=== PATIENT | female | born 1945 ===

== ENCOUNTER 2025-02-08 06:00 | Inpatient (IN) | payer OTHER ==
[2025-02-02 09:07] VITALS: BP 150/83
[2025-02-02 09:16] LABS: BASO % 0.3 % (0.1-1.2); EOS # 0.04 (0.04-0.54); EOS % 0.7 % (0.7-7.0); LYMPH # 1.44 (1.18-3.74); LYMPH % 24.1 % (19.3-53.1); MEAN PLATELET VOLUME 10.30 fl (9.4-12.4); MONO # 0.50 (0.24-0.82); MONO % 8.4 % (4.7-12.5); NEUT # 3.95 (1.56-6.13); NEUT % 66.2 % (34.0-71.1); RED CELL DISTRIBUTION WIDTH 16.5 % (11.6-14.4)
[2025-02-02 09:18] LABS: URINE APPEARANCE Cloudy; URINE BILIRRUBIN Negative (NEGATIVE); URINE BLOOD Negative; URINE COLOR Yellow; URINE KETONE Negative (NEGATIVE); URINE LEUKOCYTE Negative; URINE NITRATE Negative; URINE PROTEIN Negative (NEGATIVE); URINE UROBILINOGEN 1.0 E.U./dl
[2025-02-02 09:22] LABS: URINE BACTERIA 3941.8 uL (0.0-1933); URINE EPITHELIAL CELLS 88.1 uL (0.0-38.8); URINE RBC 9.3 uL (0.0-20.8); URINE WBC 57.0 uL (0.0-23.2)
[2025-02-02 09:44] LABS: URINE CAST 0.43 uL (0.0-1.40); URINE GLUCOSE >=1000 MG/DL (NEGATIVE)
[2025-02-02 09:49] LABS: INR 0.99
[2025-02-02 09:59] LABS: ALT/SGPT 16.0 U/L (12-78); AST/SGOT 16.0 U/L (15-37); BILIRUBIN TOTAL 0.47 mg/dL (0.3-1.2); BUN CREA RATIO 14.0 (7.0-25.0); CREATININE SERUM 0.83 mg/dL (0.55-1.02); GFR 66.48; GLOBULINA 3.5 G/DL (2.4-3.5); GLUCOSE FASTING 111.0 mg/dL (65-100); OSMOLALITY SERUM 285.0 MOSM/KG (275-295)
[~2025-02-08] VITALS: Ht 170.2 cm; Wt 58.1 kg
[~2025-02-08 06:00] MED LIST: TRIJARDY XR 101 EACH
[2025-02-08] MEDS ORDERED: CEFAZOLIN SODIUM 1,000 MG VIAL ONE (07:19)
[2025-02-08] MEDS ORDERED: CHLORHEXIDINE GLUCONATE 120 ML BOTTLE TOP ONE (07:26)
[2025-02-08] MEDS ORDERED: SUGAMMADEX SODIUM 200 MG/2 ML VIAL IV ONE (09:43)
[2025-02-08] MEDS ORDERED: POTASSIUM CHLORIDE-0.45% NACL 20 MEQ/1,000 ML PIGGYBAG IV NR (10:45)
[2025-02-08] MEDS ORDERED: MORPHINE SULFATE 4 MG/ML CARTRIDGE IV PRN (11:00)
[2025-02-08] MEDS ORDERED: INSULIN LISPRO 1,000 UNIT/10 ML UNITS SUBCUTANEO PRN (15:30)
[2025-02-08] MEDS ORDERED: DEXTROSE 50 % IN WATER 0.5 G/ML DISP.SYRIN IV PRN (15:30)
[2025-02-08 16:00] VITALS: BP 173/81; O2SAT 95
[2025-02-08] MEDS ORDERED: CEFAZOLIN SODIUM 1,000 MG VIAL IV SCH (17:00)
[2025-02-09 00:27] VITALS: BP 145/72; O2SAT 98
[2025-02-09 07:35] VITALS: BP 134/79; O2SAT 95
== END 2025-02-09 11:21 | disposition home or self-care (01) | DRG 583 ==
LOC: CIR.AMB 06:00 → EDSTATUS 07:45 → CIR.AMB 07:45 → SURH 07:45 → O/R 11:09 → CIR.AMB 11:40 → SURG 11:45 → CIR.AMB 14:00 → SURG 02-09 11:21
PROVIDERS: ADMIT Specialist; ATTEND Specialist
PROC: 0HTU0ZZ Resection of Left Breast, Open Approach (ICD-10-PCS; principal; 2025-02-08 11:40)
DX: C50.412 Malignant neoplasm of upper-outer quadrant of left female breast (principal)